=== PATIENT | male | born 1950 | race African-American/Black ===

== ENCOUNTER → 2016-07-26 | Outpatient (CLI) | payer MEDICAID ==
[~2016-07-26] MED LIST: ASPI325T6 PO; ASPIRIN 81M81 MG/TA2 PO; CATAPRES 0.1MG0.1 MG PO; COGENTIN .0.5 MG/TAB PO; COGENTIN 1MG1 MG/TAB PO; COZAAR100 MG PO; DEPAKOTE ER 25250 MG PO; DEPAKOTE ER 50500 MG PO; DESYREL DIVIDO150 M1 PO; FLUPHENAZINE HC10 MG PO; GLUCOTROL 5M5 MG/TAB PO; INDERAL 20MG20 MG PO; INSLANT SC; JANUVIA 100MG100 MG PO; K-DUR 2020 MEQ PO; LANTUS SOLOS100 U/ML SQ; LASIX 40MG TABL40 MG PO; LEVAQUIN 5500 MG/TA1 PO; MAG-OX 400400 MG/TAB PO; NORCO 325 MG-101 TAB PO; NORCO 325 MG-7.1 TAB PO; NOVOLOG FLEX100 U/ML SC; PRED FORTE 1 ML1 ML; PRINIVIL40 MG PO; PROLIX10TA; PYRIDIUM200 M1 PO; RISPERDAL2 MG PO; TRAVATAN Z 5 ML5 ML OD; XALATAN EYE DROPS OD; ZOCOR 40MG40 MG PO
== END ==
LOC: SUN.DIA 09:25
DX: E11.40 Type 2 diabetes mellitus with diabetic neuropathy, unspecified (principal); E11.21 Type 2 diabetes mellitus with diabetic nephropathy; E11.65 Type 2 diabetes mellitus with hyperglycemia; Z68.26 Body mass index [BMI] 26.0-26.9, adult; Z79.4 Long term (current) use of insulin; Z71.3 Dietary counseling and surveillance; I10 Essential (primary) hypertension; Z87.891 Personal history of nicotine dependence

== ENCOUNTER 2016-11-20 09:43 | Emergency (ER) | payer MEDICAID ==
[~2016-11-20] VITALS: Ht 180.3 cm; Wt 87.7 kg
[~2016-11-20 09:43] MED LIST changes: -LEVAQUIN 5500 MG/TA1 PO; -PYRIDIUM200 M1 PO; -XALATAN EYE DROPS OD
[2016-11-20] MEDS ORDERED: XALATAN EYE DROPS OD (10:45)
[2016-11-20] MEDS ORDERED: COZAAR100 MG PO (10:45)
[2016-11-20 10:54] LABS: BASO % 0.3 % (0.0-2.0); EOS % 0.3 % (0-4.0); GRAN # 7.1 (1.4-6.5); GRAN % 65.1 % (42.2-75.2); HEMATOCRIT 39.1 % (42.0-52.0); HEMOGLOBIN 13.4 g/dl (13.5-18.0); LYMPH # 2.9 (1.2-3.4); LYMPH % 26.1 % (20.0-51.0); MEAN CELL VOLUME 88 fl (80.0-100.0); MEAN CORPUSCULAR HEMOGLOBIN 30 pg (27.0-31.0); MEAN CORPUSCULAR HGB CONC 34 g/dl (33.0-37.0); MONO # 0.8 (0.1-0.6); MONO % 7.7 % (1.7-9.3); PLATELET COUNT 178 K/mm3 (130-400); RED BLOOD COUNT 4.46 M/mm3 (4.20-5.60); REDCELL DISTRIBUTION WIDTH-CV 13.2 % (11.5-14.5); WHITE BLOOD COUNT 10.9 K/mm3 (4.8-10.8)
[2016-11-20 10:55] LABS: PH 7 (5-8); URINE APPEARANCE Cloudy; URINE BILIRUBIN Negative (NEGATIVE); URINE BLOOD 3+ (NEGATIVE); URINE COLOR Yellow; URINE GLUCOSE Negative (NEGATIVE); URINE KETONE Negative (NEGATIVE); URINE UROBILINOGEN Negative (NEGATIVE)
[2016-11-20 11:01] LABS: URINE RBC >50 /hpf
[2016-11-20 11:08] LABS: ALBUMIN 4.4 gm/dL (3.5-5.0); BILIRUBIN,TOTAL 0.9 mg/dL (0.0-1.0); CALCIUM 9.3 mg/dL (8.4-10.2); CREATININE, serum 1.09 mg/dL (0.66-1.25); TOTAL PROTEIN 9.4 gm/dL (6.4-8.2)
[2016-11-20] MEDS ORDERED: PYRIDIUM200 M1 PO (11:31)
[2016-11-20] MEDS ORDERED: LEVAQUIN 5500 MG/TA1 PO (11:31)
[2016-11-20 12:00] VITALS: BP 165/65; PULSE 80; TEMP 99.3
== END 2016-11-20 13:28 | disposition home or self-care (01) ==
LOC: COL.ER 09:43
PROVIDERS: Physician Assistant
DX: N39.0 Urinary tract infection, site not specified (principal); R31.9 Hematuria, unspecified; E11.9 Type 2 diabetes mellitus without complications; Z79.4 Long term (current) use of insulin; I10 Essential (primary) hypertension; F31.9 Bipolar disorder, unspecified; Z89.421 Acquired absence of other right toe(s)
CPT/HCPCS: J1956

== ENCOUNTER → 2017-01-10 | Outpatient (CLI) | payer MEDICAID ==
[~2017-01-10] MED LIST changes: +LEVAQUIN 5500 MG/TA1 PO; +PYRIDIUM200 M1 PO; +XALATAN EYE DROPS OD
== END ==
LOC: SUN.DIA 01-09 14:29
DX: E11.21 Type 2 diabetes mellitus with diabetic nephropathy (principal); E11.40 Type 2 diabetes mellitus with diabetic neuropathy, unspecified; Z79.4 Long term (current) use of insulin; I10 Essential (primary) hypertension; Z68.27 Body mass index [BMI] 27.0-27.9, adult; Z71.3 Dietary counseling and surveillance; Z87.891 Personal history of nicotine dependence
CPT/HCPCS: G0108

== ENCOUNTER → 2017-01-23 | Outpatient (CLI) | payer MEDICAID | LOC: COL.RAD 10:49 | DX: R05 Cough (principal); Z87.891 Personal history of nicotine dependence ==

== ENCOUNTER → 2017-02-06 | Outpatient (CLI) | payer MEDICAID | LOC: COL.RAD 07:30 | DX: R91.1 Solitary pulmonary nodule (principal) | CPT/HCPCS: Q9967 ==

== ENCOUNTER → 2017-06-13 | Outpatient (CLI) | payer MEDICAID | LOC: SUN.DIA 09:21 | DX: E11.21 Type 2 diabetes mellitus with diabetic nephropathy (principal); E11.40 Type 2 diabetes mellitus with diabetic neuropathy, unspecified; Z79.4 Long term (current) use of insulin; I10 Essential (primary) hypertension; Z87.891 Personal history of nicotine dependence | CPT/HCPCS: G0108 ==

== ENCOUNTER → 2017-08-15 | Outpatient (CLI) | payer MEDICAID | LOC: COL.RAD 09:43 | DX: R91.1 Solitary pulmonary nodule (principal); D71 Functional disorders of polymorphonuclear neutrophils | CPT/HCPCS: Q9967 ==

== ENCOUNTER → 2017-11-13 | Outpatient (CLI) | payer MEDICAID | LOC: SUN.DIA 09:28 | DX: E11.21 Type 2 diabetes mellitus with diabetic nephropathy (principal); E11.40 Type 2 diabetes mellitus with diabetic neuropathy, unspecified; Z79.4 Long term (current) use of insulin; I10 Essential (primary) hypertension; Z68.27 Body mass index [BMI] 27.0-27.9, adult; Z71.3 Dietary counseling and surveillance; Z87.891 Personal history of nicotine dependence | CPT/HCPCS: G0108 ==

== ENCOUNTER → 2018-03-27 | Outpatient (CLI) | payer MEDICAID | LOC: SUN.DIA 03-19 11:14 | DX: E11.40 Type 2 diabetes mellitus with diabetic neuropathy, unspecified (principal); I10 Essential (primary) hypertension | CPT/HCPCS: G0108 ==

== ENCOUNTER → 2018-07-31 | Outpatient (CLI) | payer MEDICAID | LOC: SUN.DIA 10:55 | DX: E11.40 Type 2 diabetes mellitus with diabetic neuropathy, unspecified (principal); I10 Essential (primary) hypertension | CPT/HCPCS: G0108 ==

== ENCOUNTER → 2019-01-28 | Outpatient (CLI) | payer MEDICAID | LOC: DIA.ED 10:52 | DX: E11.9 Type 2 diabetes mellitus without complications (principal); I10 Essential (primary) hypertension; E11.40 Type 2 diabetes mellitus with diabetic neuropathy, unspecified; Z79.4 Long term (current) use of insulin | CPT/HCPCS: G0108 ==

== ENCOUNTER 2019-04-28 13:36 | Emergency (ER) | payer MEDICAID ==
[~2019-04-28] VITALS: Ht 180.3 cm; Wt 90.5 kg
[2019-04-28 13:40] VITALS: TEMP 97
[2019-04-28] MEDS ORDERED: MACROBID 1100 MG/CAP PO (14:06)
[2019-04-28 14:15] LABS: COLLECTION METHOD CLEAN CATCH
[2019-04-28 14:22] LABS: MUCOUS Present /lpf; PH 6 (5-8); SQUAMOUS EPITHELIAL None Seen /hpf; URINE APPEARANCE Clear; URINE BACTERIA None Seen /hpf; URINE BILIRUBIN Negative (NEGATIVE); URINE BLOOD Negative (NEGATIVE); URINE COLOR Yellow; URINE GLUCOSE Negative (NEGATIVE); URINE KETONE Negative (NEGATIVE); URINE LEUKOCYTE ESTERASE Negative (NEGATIVE); URINE NITRATE Negative (NEGATIVE); URINE PROTEIN(semi-quant) Negative (NEGATIVE); URINE RBC 0-2 /hpf; URINE UROBILINOGEN Negative (NEGATIVE)
[2019-04-28 14:37] LABS: BASO % 0.5 % (0.0-2.0); EOS # 0.1 (0.0-0.7); EOS % 1.3 % (0-4.0); GRAN # 3.9 (1.4-6.5); HEMOGLOBIN 11.3 g/dl (13.5-18.0); LYMPH # 2.7 (1.2-3.4); LYMPH % 36.8 % (20.0-51.0); MEAN CELL VOLUME 87 fl (80.0-100.0); MEAN CORPUSCULAR HEMOGLOBIN 30 pg (27.0-31.0); MEAN CORPUSCULAR HGB CONC 35 g/dl (33.0-37.0); MEAN PLATELET VOLUME 9.9 fl (7.4-10.4); MONO # 0.6 (0.1-0.6); MONO % 8.3 % (1.7-9.3); PLATELET COUNT 228 K/mm3 (130-400); RED BLOOD COUNT 3.73 M/mm3 (4.20-5.60)
[2019-04-28 14:38] LABS: HEMATOCRIT 32.5 % (42.0-52.0)
[2019-04-28 14:50] LABS: ALANINE AMINOTRANSFERASE < 6 U/L (21-72); ALBUMIN 4.2 gm/dL (3.5-5.0); ALKALINE PHOSPHATASE 119 U/L (50-136); ANION GAP 13 mmol/L (7-16); AST,SGOT 21 U/L (15-37); BILIRUBIN,TOTAL 0.4 mg/dL (0.0-1.0); BLOOD UREA NITROGEN 22 mg/dL (9-20); CALCIUM 9.4 mg/dL (8.4-10.2); CARBON DIOXIDE 25 mmol/L (22-30); CHLORIDE 107 mmol/L (98-107); GLUCOSE 151 mg/dL (74-106); POTASSIUM 4.2 mmol/L (3.4-5.0); SODIUM 145 mmol/L (137-145); TOTAL PROTEIN 8.9 gm/dL (6.4-8.2)
[2019-04-28 15:49] VITALS: BP 164/70; PULSE 74
== END 2019-04-28 16:05 | disposition home or self-care (01) ==
LOC: COL.ER 13:36
PROVIDERS: Nurse Practitioner Primary Care
DX: M54.5 Low back pain (principal); F31.9 Bipolar disorder, unspecified; I10 Essential (primary) hypertension; B18.2 Chronic viral hepatitis C; E11.9 Type 2 diabetes mellitus without complications; Z79.4 Long term (current) use of insulin; Z79.82 Long term (current) use of aspirin
CPT/HCPCS: J2270

== ENCOUNTER → 2020-01-27 | Outpatient (CLI) | payer MEDICAID ==
[~2020-01-27] MED LIST changes: +MACROBID 1100 MG/CAP PO
== END ==
LOC: DIA.ED 08:28
DX: E11.40 Type 2 diabetes mellitus with diabetic neuropathy, unspecified (principal); Z79.4 Long term (current) use of insulin; I10 Essential (primary) hypertension
CPT/HCPCS: G0108

== ENCOUNTER → 2020-07-20 | Outpatient (CLI) | payer MEDICAID | LOC: DIA.ED 13:24 | DX: E11.40 Type 2 diabetes mellitus with diabetic neuropathy, unspecified (principal); I10 Essential (primary) hypertension; Z79.4 Long term (current) use of insulin | CPT/HCPCS: G0108 ==

== ENCOUNTER → 2021-01-20 | Outpatient (CLI) | payer MEDICAID | LOC: DIA.ED 12:43 | DX: E11.65 Type 2 diabetes mellitus with hyperglycemia (principal); Z79.4 Long term (current) use of insulin; I10 Essential (primary) hypertension | CPT/HCPCS: G0108 ==

== ENCOUNTER → 2021-07-26 | Outpatient (CLI) | payer MEDICAID | LOC: DIA.ED 09:02 | DX: E11.40 Type 2 diabetes mellitus with diabetic neuropathy, unspecified (principal); Z79.4 Long term (current) use of insulin; I10 Essential (primary) hypertension | CPT/HCPCS: G0108 ==

== ENCOUNTER → 2022-01-10 | Outpatient (CLI) | payer MEDICAID | LOC: DIA.ED 13:29 | DX: E11.65 Type 2 diabetes mellitus with hyperglycemia (principal); E11.40 Type 2 diabetes mellitus with diabetic neuropathy, unspecified; I10 Essential (primary) hypertension; Z79.4 Long term (current) use of insulin | CPT/HCPCS: G0108 ==

== ENCOUNTER → 2023-07-17 | Outpatient (CLI) | payer MEDICAID | LOC: DIA.ED 10:49 | DX: E11.40 Type 2 diabetes mellitus with diabetic neuropathy, unspecified (principal); Z79.4 Long term (current) use of insulin; I10 Essential (primary) hypertension | CPT/HCPCS: G0108 ==

== ENCOUNTER → 2024-01-15 | Outpatient (CLI) | payer MEDICAID | LOC: DIA.ED 10:35 | DX: E11.40 Type 2 diabetes mellitus with diabetic neuropathy, unspecified (principal); Z79.4 Long term (current) use of insulin; I10 Essential (primary) hypertension | CPT/HCPCS: G0108 ==